=== PATIENT | female | born 1990 | race African-American/Black ===

== ENCOUNTER 2018-03-09 19:33 | Emergency (ER) | payer OTHER ==
[~2018-03-09] VITALS: Ht 157.5 cm; Wt 68.0 kg
[~2018-03-09 19:33] MED LIST: CIPROFLOXACIN500 M1 PO; FLAGYL500 MG PO; KEFLEX500 MG PO; NAPROSYN500 MG PO; VISTARIL 25 MG25 M1 OR
[2018-03-09 19:34] VITALS: BP 115/61
[2018-03-09] MEDS ORDERED: MOBIC7.5 MG PO (20:49)
== END 2018-03-09 21:22 | disposition home or self-care (01) ==
LOC: ER 19:33
DX: M25.472 Effusion, left ankle (principal); M25.471 Effusion, right ankle; M25.571 Pain in right ankle and joints of right foot; M25.572 Pain in left ankle and joints of left foot; X50.1XXA Overexertion from prolonged static or awkward postures, initial encounter; Y92.89 Other specified places as the place of occurrence of the external cause; Y93.89 Activity, other specified; Y99.8 Other external cause status

== ENCOUNTER 2018-04-30 16:49 | Emergency (ER) | payer OTHER ==
[~2018-04-30] VITALS: Ht 157.5 cm; Wt 69.8 kg
[~2018-04-30 16:49] MED LIST changes: +MOBIC7.5 MG PO
[2018-04-30] MEDS ORDERED: MOBIC7.5 MG PO (17:30)
[2018-04-30] MEDS ORDERED: NORFLEX100 MG PO (17:30)
[2018-04-30 17:54] VITALS: BP 115/63
== END 2018-04-30 17:54 | disposition home or self-care (01) ==
LOC: ER 16:49
DX: S06.0X0A Concussion without loss of consciousness, initial encounter (principal); S33.5XXA Sprain of ligaments of lumbar spine, initial encounter; V89.2XXA Person injured in unspecified motor-vehicle accident, traffic, initial encounter; Y93.89 Activity, other specified; Y92.410 Unspecified street and highway as the place of occurrence of the external cause; Y99.8 Other external cause status

== ENCOUNTER 2018-10-09 22:51 | Emergency (ER) | payer OTHER ==
[~2018-10-09] VITALS: Ht 157.5 cm; Wt 68.0 kg
[~2018-10-09 22:51] MED LIST changes: +NORFLEX100 MG PO
[2018-10-10 01:12] LABS: URINE BILIRUBIN NEGATIVE (Negative); URINE BLOOD NEGATIVE (Negative); URINE CLARITY CLEAR; URINE COLOR YELLOW; URINE GLUCOSE-RANDOM* NEGATIVE (Negative); URINE KETONES NEGATIVE (Negative); URINE LEUKOCYTES-REFLEX TRACE (Negative); URINE NITRITE-REFLEX NEGATIVE (Negative); URINE PROTEIN (DIPSTICK) NEGATIVE (Negative); URINE SPECIFIC GRAVITY 1.025 (1.005-1.035); URINE UROBILINOGEN 0.2 E.U./dl (0.2-1.0)
[2018-10-10 01:24] LABS: ABSOLUTE NEUTROPHILS 5.3 thou/uL (1.4-8.2); BASOPHILS 0.5 % (0.0-2.0); EOSINOPHILS 0.9 % (0.0-3.0); HEMATOCRIT 34.8 % (37.0-47.0); HEMOGLOBIN 11.6 gm/dL (12.0-15.0); LYMPHOCYTES 28.6 % (24.0-44.0); MCHC 33.3 g/dL (28.0-37.0); MONOCYTES 6.1 % (1.0-8.0); PLATELET COUNT 271 thou/uL (150-400); POLYS 63.9 % (36.0-66.0); RBC 4.15 mil/uL (4.20-5.00); RDW 16.4 % (10.5-14.5); WBC 8.3 thou/uL (4.0-11.0)
[2018-10-10 01:29] LABS: CALCIUM 8.8 mg/dL (8.5-10.1); CREATININE 0.8 mg/dL (0.6-1.0); POTASSIUM 4.1 mmol/L (3.5-5.1)
[2018-10-10 01:35] LABS: ALBUMIN 3.9 g/dL (3.4-5.0); TOTAL BILIRUBIN 0.2 mg/dL (<0.1-1.0); TOTAL PROTEIN 7.7 g/dL (6.4-8.2)
[2018-10-10 02:27] VITALS: BP 122/80
[2018-10-10] MEDS ORDERED: NAPROSYN500 MG PO (03:14)
== END 2018-10-10 03:38 | disposition home or self-care (01) ==
LOC: ER 22:51
PROVIDERS: Emergency Medicine
DX: K66.1 Hemoperitoneum (principal); K59.00 Constipation, unspecified